=== PATIENT | female | born 1955 | race Caucasian/White ===

== ENCOUNTER 2018-09-30 18:40 | Observation (INO) | payer OTHER ==
[~2018-09-30] VITALS: Ht 165.1 cm; Wt 87.7 kg
--- NOTE | ~2018-09-30 | HEMODYNAMI ---
PATIENT:SUMEET LLANOS MEDICAL RECORD: [id number] : 57 LOCATION:[address] ADMISSION DATE: 09/30/18 Generatedon:10/01/201812:52 Patient name: SUMEET LLANOS Patient #: [id number] SSN: : 1955 Date of study: 10/01/2018 Page: Of Hemodynamic Procedure Report Patient Data Patient Demographics Procedure consent was obtained First Name: SUMEET Gender: Female Last Name: VIET : 1955 Patient #: [id number] Age: 63 year(s) Race: Unknown Additional ID: [id number] Contact details [address]: [address] [place] [address] [address] State: [place] City: [place] Zip code: [address] Past Medical History Allergies: No known allergies Admission Admission Data Admission Date: 09/30/2018 Admission Time: 21:55 Room #: [facility] Weight (lbs.): 194.01 Weight (kg.): 88 Lab Results Lab Result Date: 10/01/2018 Lab Result Time: 0:00 Biochemistry Name Units Result Min Max BUN mg/dl 9 --(*---)-- 7 18 Creatinine mg/dl 0.8 --(-*--)-- 0.6 1.3 eGFR ml/min 76.89771 *-(----)-- 90 120 NONAFRICAN CBC Name Units Result Min Max Hematocrit % 36.4 *-(----)-- 42 54 Hemoglobin g/dl 12.8 -*(----)-- 13.5 17.5 Procedure Procedure Types Cath Procedure Diagnostic Procedure C [facility] w/Coronaries Procedure Description Procedure Date Procedure Date: 10/01/2018 Procedure Start Time: 12:44 Procedure End Time: 12:52 Procedure Staff Name Function Nicola Roman MD Performing Physician Stephanie Cotton RN Nurse Amber Barnes RT Scrub Noah Bravo RT Monitor Procedure Data Cath Procedure Fluoroscopy Diagnostic fluoroscopy Total fluoroscopy Time: 1.7 time: 1.7 min min Diagnostic fluoroscopy Total fluoroscopy dose: 472 dose: 472 mGy mGy Contrast Material Contrast Material Type Amount (ml) Isovue 300 44 Entry Location Entry Primary Successful Side Size Upsize Upsize Entry Closure Mukherjee ccessful Closure Location (Fr) 1 (Fr) 2 (Fr) Remarks Device Remarks Radial Right 6 Fr Mechanical artery Short Compression Estimated blood loss: 10 ml Diagnostic catheters Device Type Used For End Catheter Placement DIAGNOSTIC [place] 110cm 5 Procedure Fr catheter ([id number]) Procedure Complications No complications Procedure Medications Medication Administration Route Dosage 0.9% NaCl I.V. 100 ml/hr Oxygen etCO2 Nasal cannula 2 l/min Lidocaine 2% added to field 20 Heparin Flush Bag added to field 2 bags (1000units/500ml NS) Phenergan I.V. 25 mg Radial Cocktail added to field 1 syringe (Verapamil 2mg/Nitro 400mcg/Heparin 1500units) Versed I.V. 2 mg Fentanyl I.V. 50 mcg Fentanyl I.V. 50 mcg Hemodynamics Rest HGB: 12.8 (g/dl) Heart Rate: 66 (bpm) Pressure Samples Time Site Value (mmHg) Purpose Heart Use Rate(bpm) 12:47 AO 119/71(94) Snapshot 73 Snapshots Pre Cath Intra NCS Post Cath Vital Signs Time Heart Resp SPO2 etCO2 NIBP (mmHg) Rhythm Pain Sedation Rate (ipm) (%) (mmHg) Status Level (bpm) 12:37:43 66 15 98 26 144/67(94) NSR 0 (11) 10(A) , No pain 12:42:07 69 13 98 36.6 135/74(119) NSR 0 (11) 10(A) , No pain 12:46:23 84 15 97 21.7 129/68(89) NSR 0 (11) 10(A) , No pain 12:50:41 71 12 94 36.7 127/63(96) NSR 0 (11) 10(A) , No pain Medications Time Medication Route Dose Verified Delivered Reason Notes E ffectiveness by by 12:36:36 0.9% NaCl I.V. 100 Nicola Stephanie used for ml/hr Jessie Cotton bending machine set up operator 12:36:42 Oxygen etCO2 2 l/min Nicola Aragonyla used for Nasal Jessie Cotton procedure cannula RN 12:36:46 Lidocaine 2% added 20ml Nicola Nicola for local to vial Jessie Roman MD anesthetic field 12:36:50 Heparin Flush added 2 bags Nicolaamaris Petersen used for Bag to Jessie Roman MD procedure (1000units/500ml field NS) 12:37:00 Phenergan I.V. 25 mg Nicola Stephanie for nausea Jessie Cotton RN 12:43:01 Radial Cocktail added 1 Nicola Stephanie used for (Verapamil to syringe Jessie Cotton procedure 2mg/Nitro field RN 400mcg/Heparin 1500units) 12:43:16 Versed I.V. 2 mg Nicola Stephanie for Jessie Cotton sedation RN 12:43:21 Fentanyl I.V. 50 mcg Nicola Stephanie for Jessie Cotton sedation RN 12:48:59 Fentanyl I.V. 50 mcg Nicola Stephanie for Jessie Cotton sedation block layer Log Time Note 12:14:37 Signed procedure consent form obtained from patient. 12:14:56 Diagnostic Cath status Elective 12:14:57 Time tracking: Regular hours (M-F 7:00 - 5:00) 12:15:01 Plan of Care:Hemodynamics will remain stable., Cardiac rhythm will remain stable., Comfort level will be maintained., Respiratory function will remain adequate., Patient/ family verbilizes understanding of procedure., Procedure tolerated without complication., Recovers from procedure without complications.. 12:15:57 Patient allergic to No known allergies 12:16:06 Patient Weight : 194.01 lbs 12:16:40 Lab Result : BUN 9 mg/dl 12:16:40 Lab Result : eGFR NONAFRICAN 76.66210 ml/min 12:16:40 Lab Result : Creatinine 0.8 mg/dl 12:16:40 Lab Result : Hematocrit 36.4 % 12:16:40 Lab Result : Hemoglobin 12.8 g/dl 12:19:04 Stephanie Cotton RN sent for patient. Start room use. 12:28:23 Patient received from Med II to CCL 1 Alert and oriented. Tansferred to table in Supine position. 12:28:24 Warm blankets applied, and robe hugger turned on for patient comfort. 12:28:26 Signed procedure consent form obtained from patient. 12:: Correct patient and procedure confirmed by team. 12:28:27 ECG and BP/O2 sat monitors applied to patient. 12:36:27 Vital chart was started 12:36:36 0.9% NaCl 100 ml/hr I.V. was administered by Stephanie Cotton RN; used for procedure; 12:36:42 Oxygen 2 l/min etCO2 Nasal cannula was administered by Stephanie Cotton RN; used for procedure; 12:36:46 Lidocaine 2% 20ml vial added to field was administered by Nicola Roman MD; for local anesthetic; 12:36:50 Heparin Flush Bag (1000units/500ml NS) 2 bags added to field was administered by Nicola Roman MD; used for procedure; 12:37:00 Phenergan 25 mg I.V. was administered by Stephanie Cotton RN; for nausea; 12:39:03 Baseline sample Acquired. 12:39:06 Rhythm: sinus rhythm 12:39:09 Full Disclosure recording started 12:39:14 H&P Date Dictated: 10/01/2018 Within 30 days and on chart.. 12:39:15 Pre-procedure instructions explained to patient. 12:39:16 Pre-op teaching completed and patient verbalized understanding. 12:39:18 Family in patients room. 12:39:20 Patient NPO since Midnight. 12:39:22 Is the patient allergic to Iodine/contrast media? No. 12:39:23 Is patient on blood thinner?Yes 12:39:26 ACC The patient was administered the following blood thiners within the last 24 hours: ACCPlavix 12:39:27 Patient diabetic? No. 12:39:38 Previous problem with sedation/anesthesia? Yes Nausea 12:39:42 Snore? Yes 12:39:43 Sleep apnea? No 12:39:44 Deviated septum? No 12:39:44 Opens mouth fully? Yes 12:39:45 Sticks out tongue? Yes 12:39:53 Airway obstruction? No Hx of Lung CA 12:39:56 Dentures? No ? 12:39:58 Pre procedure: right dorsailis pedis pulse 1+ Palpable, but thready & weak; easily obliterated 12:40:00 Modified Patrice's test Ulnar < 7 seconds 12:40:01 Patient pain scale 0/10 ?. 12:40:05 IV patent on arrival in left forearm with 0.9% NaCl at [facility]. 12:40:07 Lab results completed and on chart. 12:40:10 Right Radial & Right Groin area was prepped with chlora-prep and draped in sterile fashion 12:40:11 Alarms reviewed by R. N. 12:40:12 Sharps counted by scrub and verified by R.N. 12:40:13 --------ALL STOP TIME OUT------ 12:40:13 Final Timeout: patient, procedure, and site verified with staff and physician. All members of the team are in agreement. 12:40:15 Right Radial & Right Groin site verified by team. 12:40:19 Fire Safety Assessment: A--An alcohol-based skin anteseptic being used preoperatively., C--Open oxygen or nitrous oxide is being used., D--An ESU, laser, or fiber-optic light is being used. 12:40:22 Physical assessment completed. ASA score P 2 - A patient with mild systemic disease as per Nicola Roman MD. 12:40:25 2) 60-89 Mildly reduced kidney function, and other findings (as for stage 1) point to kidney disease. 12:40:29 Maximum allowable contrast does (3.7 X eGFR X 0.75)214 ml. 12:40:32 Sedation plan: IV Moderate Sedation Medication:Versed, Fentanyl 12:43:01 Radial Cocktail (Verapamil 2mg/Nitro 400mcg/Heparin 1500units) 1 syringe added to field was administered by Stephanie Cotton RN; used for procedure; 12:43:16 Versed 2 mg I.V. was administered by Stephanie Cotton RN; for sedation; 12:43:21 Fentanyl 50 mcg I.V. was administered by Stephanie Cotton RN; for sedation; 12:44:14 Procedure started. 12:44:19 Local anesthetic to right radial artery with Lidocaine 2% by Nicola Roman MD.INITIAL ACCESS ONLY 12:44:24 Use device set Radial Dx or PCI 12:44:25 ACIST Syringe (22103) opened to sterile field. 12:44:26 Medline Cath Pack ([id number]) opened to sterile field. 12:44:26 Bag Decanter (2002) opened to sterile field. 12:44:27 ACIST Hand Control (95390) opened to sterile field. 12:44:27 ACIST Manifold (49728) opened to sterile field. 12:44:27 Tegaderm 4 x 4 (1626W) opened to sterile field. 12:44:28 MBrace Wrist Support ([id number]) opened to sterile field. 12:44:29 EMERALD Guide Wire (502-231) opened to sterile field. 12:44:30 SHEATH 6FR RAIN (2912013) opened to sterile field. 12:45:53 A 6 Fr Short sheath was inserted into the Right Radial artery 12:46:06 A DIAGNOSTIC [place] 110cm 5 Fr catheter ([id number]) was advanced over the wire and used for Procedure. 12:46:46 LV angiography performed. 12:46:48 LV gram done using FUNES 12:46:53 EF : 55 % 12:46:56 Injector settings: Ml/sec: 5, Volume: 15, 12:47:19 RCA angiography performed. 12:47:51 Catheter exchanged over wire. 12:48:08 GUIDE 6FR EBU 3.0 catheter ([id number]) opened to sterile field. 12:48:44 6 Fr EBU 3 guide catheter was inserted over the wire 12:48:57 LCA angiography performed. 12:48:59 Fentanyl 50 mcg I.V. was administered by Stephanie Cotton RN; for sedation; 12:50:03 Catheter removed. 12:50:06 TR BAND Standard ([id number]) opened to sterile field. 12:50:24 Sheath removed intact; hemostasis achieved with Mechanical Compression to the Right Radial artery. 12:50:28 Procedure ended.(Physican Out) 12:51:02 Fluoroscopy time 01.70 minutes. 12:51:06 Fluoroscopy dose: 472 mGy 12:51:06 Flurop Dose total: 472 12:51:11 Contrast amount:Isovue 300 44ml. 12:51:13 Sharps counted by scrub and verified by R.N. 12:51:16 TR band inflated with 10cc of air. 12:51:17 Insertion/operative site no bleeding no hematoma. 12:51:19 Post Procedure Pulses reassessed and unchanged 12:51:21 Post-procedure physical assessment completed. ASA score P 2 - A patient with mild systemic disease as per Nicola Roman MD. 12:51:24 Post procedure rhythm: unchanged. 12:51:27 Estimated blood loss: 10 ml 12:51:29 Post procedure instruction explained to patient.Patient verbalizes understanding. 12:51:30 Patient needs reinforcement of post procedure teaching. 12:51:35 Procedure Complication : No complications 12:51:52 Procedure and supply charges have been captured, reviewed, submitted and are correct. 12:51:53 Vital chart was stopped 12:51:53 See physician's report for complete and final results. 12:51:56 Report given to Med II. 12:52:00 Patient transfered to [facility] II with Stretcher. 12:52:03 Procedure ended. 12:52:03 Full Disclosure recording stopped 12:52:34 End room use (Document Last) Device Usage Item Name Manufacture Quantity Catalog Hospital Part Current Minima l Lot# / Number Charge Number Stock Stock Serial# Code ACIST Acist 1 51049 [id number] 203590 434903 20 Syringe Medical (20510) Systems Inc Medline Medline 1 [id number] 722034 37984 415935 5 Cath Pack ([id number]) Bag Microtek 1 470360 10727 489489 5 Decanter Medical Inc. () ACIST Hand Acist 1 25159 087046 951424 145699 5 Control Medical (95959) Systems Inc ACIST Acist 1 72570 708970 283797 426690 5 Manifold Medical (07870) Systems Inc Tegaderm 4 3M 1 1626W 510276 891273 874255 5 x 4 (1626W) MBrace Advanced 1 140-0250-00 642823 27272 590553 5 Wrist Vascular Support Dynamics ([id number]) EMERALD Cardinal 1 502-455 610699 826023 281030 5 Guide Wire Health (674-455) SHEATH 6FR Cardinal 1 [id number] 791528 7004176 777203 5 [facility] (0186776) DIAGNOSTIC Terumo 1 40-2663 782937 449382 848105 5 [place] 110cm 5 Fr catheter (433054) GUIDE 6FR Medtronic 1 [id number] 330461 70663 918319 0 EBU 3.0 catheter (JB1RDS95) TR BAND Terumo 1 [id number] 054070 478959 099719 40 Standard ([id number]) Signature Audit [place] Stage Time Signature Unsigned Intra-Procedure 10/01/2018 Noah Bravo 12:52:54 PM RT(R) Signatures Performing Physician : Signature : Nicola Roman MD Date : Time : Nurse : Stephanie Cotton RN Signature : Date : Time : Monitor : Noah Bravo RT Signature : Date : Time : [facility] [address] [place] [address]
--- NOTE | ~2018-09-30 | OP ---
PATIENT NAME: SUMEET LLANOS MEDICAL RECORD: [id number] :57 LOCATION:D.M2 D.2124 ADMISSION DATE:09/30/18 SURGEON: DELANEY SANTIZO MD DATE OF OPERATION: 10/01/2018 PROCEDURES: 1. Left heart catheterization. 2. Selective coronary angiography. 3. Left ventriculogram. INDICATION: Chest pain, syncope, elevated troponin. PROCEDURE IN DETAIL: After informed consent was obtained with detailed description of risks and benefits as well as alternative therapies, the patient elected to proceed with angiogram and heart catheterization. The right radial area was prepped and draped in normal sterile fashion. The right radial artery was cannulated via modified Seldinger technique with placement of 6-[place] sheath. All catheters were exchanged through this sheath. FINDINGS: Left ventriculogram performed in standard 30-degree FUNES view reveals good cardiac wall motion throughout all segments. Overall ejection fraction is estimated at 60%. SELECTIVE CORONARY ANGIOGRAPHY: Left main, left anterior descending, left circumflex, and right coronary artery are all smooth-walled vessels with no angiographic evidence of coronary artery disease. OVERALL IMPRESSION: 1. No angiographic evidence of coronary artery disease. 2. Normal left heart pressures. 3. Normal left ventricular systolic function. Laboratory values were inaccurate. No coronary artery disease is present. Unknown etiology of syncope, most likely vasovagal. Follow up with her primary care physician in [place], [place]. TRANSINT:[id number] Voice Confirmation ID: [id number] DOCUMENT ID: [id number] DELANEY SANTIZO MD CC: [id number] DICTATION DATE: 10/01/18 1253 DIRECTOR OF NATIONAL SALES: 10/01/18 1530 [place] [address]
--- NOTE | ~2018-09-30 | DS ---
PATIENT:SUMEET LOMAS :57 MEDICAL RECORD: [id number] DISCHARGE SUMMARY ADMISSION DATE: 09/30/18 DISCHARGE DATE: DATE OF SERVICE: 10/01/2018 DIAGNOSES: 1. Syncope. 2. Elevated troponin. 3. Chest pain. 4. Nausea and vomiting. Mrs. Lomas had an episode of chest pain, nausea, vomiting, and syncope. Troponin was elevated; however, cardiac catheterization was normal. Discharged home to follow up with her primary care physician in [place], [place]. TRANSINT:[id number] Voice Confirmation ID: [id number] DOCUMENT ID: [id number] DELANEY SANTIZO MD CC: [id number] DICTATION DATE: 10/01/18 1251 WAITANGI TRIBUNAL MEMBER: 10/01/18 1518 ADM IN [place] [id number] [place] [id number]
--- NOTE | 2018-09-30 19:08 | NUR ---
LAB AT PT BEDSIDE. PT RESTING WITH EYES CLOSED ON BED.
[2018-09-30 19:15] LABS: BASOPHILS 0.3 % (0-2); EOSINOPHILS 1.5 % (0-7); HEMATOCRIT 36.8 % (36.0-48.0); IMMATURE GRANULOCYTES 0.4 % (0-5); LYMPHOCYTES 18.6 % (15-50); MCH 30.1 pg (26.0-34.0); MCHC 35.3 g/dL (31.0-37.0); MCV 85.2 fL (80.0-100.0); MONOCYTES 5.7 % (2-11); NEUTROPHILS 73.5 % (40-80); PLATELET COUNT 253 10x3/uL (130-400); RBC 4.32 10x6/uL (4.00-5.40); RDW 12.4 % (11.5-14.5); WBC 9.5 10x3/uL (4.8-10.8)
[2018-09-30 19:28] LABS: ALBUMIN 3.8 g/dL (3.4-5.0); ALKALINE PHOSPHATASE 86 U/L (46-116); ALT (SGPT) 37 U/L (10-68); BILIRUBIN - TOTAL 0.71 mg/dL (0.2-1.3); CALC OSMOLALITY 280 mosm/kg (275-300); CALCIUM 9.6 mg/dL (8.5-10.1); CARBON DIOXIDE 25.4 mmol/L (21.0-32.0); CHLORIDE - SERUM 101 mmol/L (98-107); CREATININE - SERUM 0.8 mg/dL (0.6-1.3); GLUCOSE 260 mg/dL (74-106); POTASSIUM - SERUM 3.1 mmol/L (3.5-5.1); PROTEIN - SERUM 6.9 g/dL (6.4-8.2); SODIUM 136 mmol/L (136-145); UREA NITROGEN 12 mg/dL (7-18); eGFR NON AFRICAN AMERICAN 77 mL/min (90-120)
[2018-09-30 19:30] VITALS: BP 175/74
[2018-09-30 19:44] LABS: CKMB 4.3 U/L (0.0-3.6); CREATINE KINASE 228 UL (21-215)
[2018-09-30 19:49] LABS: TROPONIN-I 0.092 ng/mL (0.000-0.060)
--- NOTE | 2018-09-30 20:02 | NUR ---
PT LEFT ED VIA STRETCHER FOR CT.
[2018-09-30 20:45] VITALS: BP 176/94
[2018-09-30 21:30] VITALS: BP 185/89
--- NOTE | 2018-09-30 21:35 | NUR ---
PT AND FAMILY UPDATED ON PLAN OF CARE.
--- NOTE | 2018-09-30 23:20 | NUR ---
RECEIVED FROM ER VIA WHEELCHAIR, [id number]. PT IS A&O X4, NO HOME MEDS, HISTORY IS COMPLETE, BED IS LOW, SRX2, CALL LIGHT IN REACH, WILL CONTINUE PLAN OF CARE
[2018-10-01] VITALS: BP 137/72
[2018-10-01 00:03] LABS: CKMB 4.4 U/L (0.0-3.6); CREATINE KINASE 205 UL (21-215)
[2018-10-01 00:05] LABS: TROPONIN-I 0.099 ng/mL (0.000-0.060)
[2018-10-01 04:00] VITALS: BP 125/52; BP 137/72; Ht 165.1 cm; Wt 87.7 kg
--- NOTE | 2018-10-01 04:29 | NUR ---
ADMISSION ASSESSMENT COMPLETED. PT RESTING WITH NO DISTRESS. CALL LIGHT IN REACH.
[2018-10-01 06:19] LABS: BASOPHILS 0.2 % (0-2); EOSINOPHILS 0.3 % (0-7); HEMATOCRIT 36.4 % (36.0-48.0); HEMOGLOBIN 12.8 g/dL (12-16); IMMATURE GRANULOCYTES 0.2 % (0-5); LYMPHOCYTES 18.3 % (15-50); MCH 29.9 pg (26.0-34.0); MCHC 35.2 g/dL (31.0-37.0); MEAN PLATELET VOLUME 10.2 fL (7.4-10.4); MONOCYTES 5.6 % (2-11); NEUTROPHILS 75.4 % (40-80); PLATELET COUNT 261 10x3/uL (130-400); RBC 4.28 10x6/uL (4.00-5.40); RDW 12.8 % (11.5-14.5); WBC 9.5 10x3/uL (4.8-10.8)
[2018-10-01 06:52] LABS: ALBUMIN 3.5 g/dL (3.4-5.0); ALKALINE PHOSPHATASE 79 U/L (46-116); ALT (SGPT) 36 U/L (10-68); BILIRUBIN - TOTAL 0.63 mg/dL (0.2-1.3); CARBON DIOXIDE 25.6 mmol/L (21.0-32.0); CHLORIDE - SERUM 103 mmol/L (98-107); CREATINE KINASE 157 UL (21-215); CREATININE - SERUM 0.8 mg/dL (0.6-1.3); PROTEIN - SERUM 6.6 g/dL (6.4-8.2); SODIUM 138 mmol/L (136-145); UREA NITROGEN 9 mg/dL (7-18); eGFR NON AFRICAN AMERICAN 77 mL/min (90-120)
[2018-10-01 06:53] LABS: CALC OSMOLALITY 280 mosm/kg (275-300); GLUCOSE 202 mg/dL (74-106); POTASSIUM - SERUM 3.8 mmol/L (3.5-5.1); TROPONIN-I 0.078 ng/mL (0.000-0.060)
--- NOTE | 2018-10-01 07:37 | NUR ---
PT RESTING IN BED, SHIFT ASSESSMENT PERFORMED, VITALS TAKEN AND WNL. DENIES ANY NEEDS AT THIS TIME, WILL CONT TO FOLLOW POC
[2018-10-01 07:38] VITALS: BP 133/68
--- NOTE | 2018-10-01 10:00 | NUR ---
BEAN PICKER CONSENTS SIGNED WITH SECOND NURSE WITNESS
[2018-10-01 10:43] LABS: CKMB 2.1 U/L (0.0-3.6); CREATINE KINASE 135 UL (21-215)
[2018-10-01 10:46] LABS: TROPONIN-I 0.085 ng/mL (0.000-0.060)
--- NOTE | 2018-10-01 12:00 | NUR ---
SEX OFFENDER TREATMENT PROFESSIONAL CALLED TO PREOP PT. PT PREOP ORDERED
--- NOTE | 2018-10-01 12:30 | NUR ---
PT LEFT FLOOR FOR HEART CATH
--- NOTE | 2018-10-01 12:52 | HP ---
PATIENT: SUMEET LOMAS MEDICAL RECORD: [id number] ACCOUNT: [id number] LOCATION:[address] : 57 ADMISSION DATE: 09/30/18 PCP: No PCP HISTORY AND PHYSICAL EXAMINATION DIAGNOSES: 1. Non-Q-wave myocardial infarction. 2. Syncope. HISTORY OF PRESENT ILLNESS: Mrs. Lomas had an event yesterday. She felt nauseated, then she became very hot, and then very cold and clammy. She did have chest pressure with this and then had janelle syncope. When she awoke after just few seconds, she continued to have the chest pressure, the nausea, and the vomiting. She presents. Her troponin is positive for a non-Q-wave myocardial infarction. She has continued to have episodes this morning as well. Her troponin is not trending down, it is trending upward. Her EKG is with nonspecific ST-T abnormalities. Overall, she has no previous cardiac history. PHYSICAL EXAMINATION: GENERAL APPEARANCE: Well-nourished, well-developed, appears stated age. Level of distress, comfortable. PSYCHIATRIC: Mental status, alert, normal affect. Orientation, oriented to time, place and person. EYES: Lids and conjunctiva, noninjected. No discharge, no pallor. ENT: Lips, teeth, gums, normal dentition. Oropharynx, no cyanosis, no pallor. NECK: Carotid arteries, bilateral normal upstroke, no bruits, no thrills. JUGULAR VEINS: No jugular venous pressure or distention. CERVICAL LYMPH NODES: Nontender, nonenlarged. THYROID: Not enlarged. Nontender. No nodules. LUNGS: Respiratory effort, unlabored. CHEST: Normal curvature. No thoracic deformity. No chest wall tenderness. Percussion, resonant. Auscultation, clear. No wheezes, no rales, no rhonchi. CARDIOVASCULAR: Precordial exam, nondisplaced. No heaves or pericardial thrills. Rate and rhythm, regular. Heart sounds, normal S1, normal S2. No S3, no gallop, no rub. Systolic murmur, not heard. Diastolic murmur, not heard. EXTREMITIES: No cyanosis, no edema. Peripheral pulses, full and equal in all extremities, except as noted. No bruits appreciated. ABDOMEN: Soft, nondistended. Normal aorta. No bruit. Nontender. No masses. Liver, nontender, no hepatomegaly. Spleen, nontender, no splenomegaly. MUSCULOSKELETAL: No joint tenderness. No joint swelling. No erythema. NEUROLOGICAL: Normal gait, normal strength, normal tone. SKIN: Warm and dry. OVERALL IMPRESSION: Non-Q-wave myocardial infarction with continued symptomatology. We will proceed with coronary angiography. Further care depends upon findings of the angiography. TRANSINT:[id number] Voice Confirmation ID: [id number] DOCUMENT ID: [id number] HISTORY AND PHYSICAL [id number] SUMEET LOMAS JEFFREY MD at 1252 CC: [id number] DICTATION DATE: 10/01/18 1123 INSTALLER MOLDING AND TRIM: 10/01/18 1149 ADM IN [facility] [address] [place] [address]
--- NOTE | 2018-10-01 13:11 | NUR ---
PATIENT RECEIVED BACK TO ROOM FROM SENIOR RESERVOIR ENGINEER. AWAKE, ALERT, ORIENTED. TR BAND TO RIGHT WRIST PATENT. NO BLEEDING OR HEMATOMA FORMATION TO SITE. VS STABLE, 121/60. TELEMETRY PATENT. NO DISTRESS. PATIENT REQUESTING ICE WATER AT THIS TIME.
--- NOTE | 2018-10-01 13:25 | NUR ---
PT RESTING IN BED, VSS AND WNL. TR BAND IN PLACE TO PT RIGHT WRIST. NO SIGNS OF HEMATOMA FORMATION NOTED AND CAP REFILL WNL. SPOUSE AT BEDSIDE. WILL CONT TO FOLLOW POC
--- NOTE | 2018-10-01 13:40 | NUR ---
PT RESTING IN BED, SPOUSE AT BEDSIDE. TR BAND IN PLACE TO PT RIGHT ARM. NO SIGNS OF HEMATOMA FORMATION NOTED AND CAP REFILL WNL. DENIES ANY NEEDS AT THIS TIME, WILL CONT TO FOLLOW POC
--- NOTE | 2018-10-01 14:00 | NUR ---
PT RESTING IN BED, VSS AND WNL. TR BAND IN PLACE TO PT RIGHT WRIST. DENIES ANY NEEDS AT THIS TIME. WILL CONT TO FOLLOW POC
--- NOTE | 2018-10-01 14:30 | NUR ---
PT RESTING IN BED, TR BAND IN PLACE TO PT RIGHT WRIST, NO SIGNS OF HEMATOMA FORMATION NOTED AT THIS TIME, WILL CONT TO FOLLOW POC
--- NOTE | 2018-10-01 15:00 | NUR ---
PT RESTING IN BED, 5ML AIR REMOVED FROM RIGHT RADIAL TR BAND. NO SIGNS OF HEMATOMA FORMATION NOTED AND CAP REFILL WNL. DENIES ANY NEEDS AT THIS TIME, WILL CONT TO FOLLOW POC
--- NOTE | 2018-10-01 15:51 | NUR ---
REMAINING 5ML AIR REMOVED FROM TR BAND. NO SIGNS OF BLEEDING NOTED. PT REQUEST TO KEEP ARM BRACE IN PLACE DUE TO LONG DRIVE HOME. DISCHARGE INSTRUCTIONS REVIEWED WITH PT AND ALL QUESTIONS ANSWERED. PIV REMOVED WITH CATHTER TIP INTACT. TELEMETRY REMOVED AND GIVEN TO MANAGER GREEN JUDY. ASSISTED PT INTO WHEELCHAIR AND TAKEN TO FRONT OF HOSPITAL. PT LEFT WITH SPOUSE
--- NOTE | 2018-10-02 09:31 | MORECARE ---
CASE MANAGEMENT DISCHARGE SUMMARY PATIENT: SUMEET LLANOS UNIT: [id number] ADM DATE: 09/30/18 AGE: 63 : 57 SEX: F ROOM/BED: D.6514 AUTHOR: ITALO FERNANDES PHYSICIAN: REFERRING PHYSICIAN: DELANEY SANTIZO MD DATE OF SERVICE: 10/02/18 Discharge Plan Patient Name: SUMEET LLANOS Facility: [facility]:[place] : 1955 Planned Disposition: Home Anticipated Discharge Date: 10/01/18 Discharge Date: 10/01/2018 Expected LOS: 1 Initial Reviewer: [email or web address] Initial Review Date: 10/02/2018 Generated: 10/02/18 10:30 am Patient Name: SUMEET LLANOS Page [id number] at 0931 All edits/amendments must be made on the electronic document DICTATION DATE: 10/02/18929 OPAL MINER: MARIN 10/02/18929 RPT#: [id number] DC DATE:10/01/18 STATUS: DIS IN [facility] [address] [place] [address] END OF REPORT
== END 2018-10-01 15:53 | disposition home or self-care (01) ==
LOC: D.ER 18:40 → D.M2 21:55 → OBSVTIME 21:55 → D.M2 10-01 15:53
PROVIDERS: Emergency Medicine; Family Medicine; ADMIT Internal Medicine Interventional Cardiology; ATTEND Internal Medicine Interventional Cardiology
DX: I21.4 Non-ST elevation (NSTEMI) myocardial infarction (principal); R07.9 Chest pain, unspecified; R55 Syncope and collapse; R11.2 Nausea with vomiting, unspecified